=== PATIENT | female | born 1975 | race Caucasian/White ===

== ENCOUNTER 2016-08-26 08:54 | Day surgery (SDC) | payer OTHER ==
[2016-08-20 09:38] LABS: BASOPHILS 0.1 %; BASOPHILS ABSOLUTE 0.01 10/3/uL (0.0-0.16); EOSINOPHILS 0.6 %; EOSINOPHILS ABSOLUTE 0.06 10/3/uL (0.0-0.53); HEMATOCRIT 39.1 % (36.0-48.0); HEMOGLOBIN 13.2 g/dL (12.0-16.0); IMMATURE GRANULOCYTES 0.2 %; IMMATURE GRANULOCYTES ABSOLUTE 0.02 10/3/uL (0.0-0.11); LYMPHOCYTES 33.1 %; MEAN CORPUS HGB CONC 33.8 g/dL (32.0-36.0); MEAN CORPUSCULAR HEMOGLOB 30.3 pg (26.0-34.0); MEAN CORPUSCULAR VOLUME 89.7 fL (80-100); MEAN PLATELET VOLUME 9.9 fL (9.2-13.0); MONOCYTES 4.4 %; MONOCYTES ABSOLUTE 0.41 10/3/uL (0.21-1.20); NEUTROPHILS 61.6 %; NEUTROPHILS ABSOLUTE 5.77 10/3/uL (2.02-8.40); PLATELET COUNT 313 10/3/uL (150-400); RBC DISTRIBUTION WIDTH 12.9 % (12.0-16.0); RED CELL COUNT 4.36 10/6/uL (4.0-5.6); WHITE BLOOD CELLS 9.4 10/3/uL (4.5-10.5)
[2016-08-20 09:41] LABS: MANUAL DIFF NO %
[2016-08-20 10:03] LABS: CHLORIDE, SERUM 108 MMOL/L (96-112); CO2 (CARBON DIOXIDE) 24 MMOL/L (24-34); CREATININE 0.86 MG/DL (0.55-1.02); GFR AFRICAN AMERICAN 99 ML/MIN (>=60); GFR NON AFRICAN AMERICAN 85 ML/MIN (>=60); GLUCOSE, SERUM 86 MG/DL (60-99); POTASSIUM, SERUM 4.2 MMOL/L (3.5-5.3); SODIUM, SERUM 142 MMOL/L (135-148)
[2016-08-20 10:04] LABS: BUN (BLOOD UREA NITROGEN) 22 MG/DL (6-23)
--- NOTE | ~2016-08-26 | OP ---
Record Of Operation [facility] [address] [place]. [address] NAME: ALBER SYED : 79 STATUS : [facility]#: [id number] AGE: 41 ADM/REG DATE : 08/26/16 MR#: [id number] REPORT SERV DATE: 08/26/16 DICTATED BY: KARLIE YOO DATE: 08/26/16 REPORT STATUS : Draft TRANSCRIBED BY: MODMonica DATE: 08/26/16 DATE OF PROCEDURE: 08/26/2016 SERVICE: Otolaryngology. PREOPERATIVE DIAGNOSES: 1. Chronic sinusitis of the bilateral frontal sinuses. 2. Chronic nasal airway obstruction due to internal nasal valve insufficiency. POSTOPERATIVE DIAGNOSES: 1. Chronic sinusitis of the bilateral frontal sinuses. 2. Chronic nasal airway obstruction due to internal nasal valve insufficiency. PROCEDURES: 1. Bilateral endoscopic frontal sinusotomy. 2. Repair of nasal vestibular stenosis. 3. [place] of septal cartilage for use as a graft in the nose. SURGEON: Karlie Yoo MD ANESTHESIA: General endotracheal anesthesia. COMPLICATIONS: None. SPECIMENS: None. FINDINGS: I was able to clearly open the nasal frontal outflow tracts and verified their opening with the 45-degree scope. I repaired the internal nasal valve insufficiency with hair preparer grafts I created from harvested quadrangular cartilage. STATEMENT OF MEDICAL NECESSITY: This is a 41-year-old female who had undergone previous septoplasty and maxillary sinusotomies years ago from another ENT who came to me with persistent central facial headaches and chronic nasal airway obstruction. CT scan demonstrated inflammation of the outflow tracts and also physical exam demonstrated internal valve nasal insufficiency. For these, I recommended the above-indicated procedures. STATEMENT OF OPERATION: The patient was brought to the operating room in supine position and transferred over to the operating room table. After all pressure points were padded and general endotracheal anesthesia was established, the patient was draped for the sinus portion of the case. A 4% cocaine pledgets were placed in both sides of the nose and allowed to sit, they were removed. Starting on the patient's right-hand side, using a 45- degree scope, and an Acclarent Relieva balloon-type system, the lighted wire was passed easily into the frontal sinus. Pinpoint translucent was present. I inflated three times at the balloon to 12 atmospheres for 3 seconds each time, removed it and then visualized a wide open frontal sinus outflow tract via the 45-degree scope. This process repeated for the left hand side. I did have a somewhat more difficulty cannulating the left frontal outflow Record Of Operation [facility] [id number] [place]. [address] NAME: ALBER SYED : 79 STATUS : [facility] PAT#: [id number] AGE: 41 ADM/REG DATE : 08/26/16 MR#: [id number] REPORT SERV DATE: 08/26/16 DICTATED BY: KARLIE YOO DATE: 08/26/16 REPORT STATUS : Draft TRANSCRIBED BY: ROLANDO DATE: 08/26/16 tract, but I was able to get confirm with pinpoint translucent. I also inflated this three times to 12 atmospheres. I was also able to confirm a wide open frontal sinus outflow tract using the 45-degree scope. Next, we prepared for the nasal portion of the surgery. The patient was prepped and draped in the usual fashion. An inverted V transcolumellar incision was marked with a surgical marking pen. The nasal soft tissue envelope was injected with 1% lidocaine with epinephrine. Marginal incisions were made bilaterally and a transcolumellar incision was also made with an 11 blade. The transcolumellar flap was elevated in the submuscular plane and connected to the marginal incisions. The skin and soft tissue envelope of the nose was elevated to completely expose the upper and lower lateral cartilages. The anterior septal angle was then developed with a 15 blade. Bilateral perichondrial flaps were elevated. The patient had intact quadrangular cartilage. I the upper lateral cartilages from the dorsal septal cartilage with a 15 blade. I then harvested a small piece of quadrangular cartilage, leaving 1.5 dorsal and caudal strut. This was taken to the back table. Two hair preparer grafts were carved with a 15 blade. They were placed between the upper lateral cartilage and the dorsal septal cartilage and secured with 5-0 PDS sutures. The skin and soft tissue envelope was then redraped and checked for symmetry, which was present. The transcolumellar incision was closed with interrupted 6-0 fast absorbing gut sutures followed by the marginal incision, which was closed with interrupted 4-0 chromic sutures. Morgan splints that were coated with bacitracin were inserted into both sides of the nose and secured to the anterior septum with a 3-0 nylon suture. The skin of the face and nose were then cleansed with warm saline and dried. Mastisol solution was applied to the dorsum of the nose followed by modified Steri-Strips and an Aquaplast splint. This concluded the case. The patient was turned back over to Anesthesia, where she awoke, was extubated, and transferred to the PACU in stable condition. ARLIN/ROLANDO Karlie Yoo MD / [id number] CC: Karlie Yoo MD
[~2016-08-26 08:54] MED LIST: FISH-EPA1000 MG PO; FLONASE NAS; IBU-200200 MG PO; SINGULAIR1 PO; YASMIN 281 TAB PO; ZYRTEC ALLGY10 MG PO
== END 2016-08-26 16:38 | disposition home or self-care (01) ==
LOC: SDC 08:54
PROVIDERS: Otolaryngology
PROC: 02N Heart and Great Vessels, Release (ICD-10-PCS; 2016-08-26)
PROC: 0HR1X73 Replacement of Face Skin with Autologous Tissue Substitute, Full Thickness, External Approach (ICD-10-PCS; 2016-08-26)
PROC: 09QT4ZZ Repair Left Frontal Sinus, Percutaneous Endoscopic Approach (ICD-10-PCS; principal; 2016-08-26 09:45)
PROC: 09QS4ZZ Repair Right Frontal Sinus, Percutaneous Endoscopic Approach (ICD-10-PCS; 2016-08-26 09:45)
DX: J32.1 Chronic frontal sinusitis (principal); K21.9 Gastro-esophageal reflux disease without esophagitis; J44.9 Chronic obstructive pulmonary disease, unspecified; I07.1 Rheumatic tricuspid insufficiency; Z98.890 Other specified postprocedural states
CPT/HCPCS: 80048; 84703; 85025; 93005; A9270-GY; C1725; C1726; J0690; J2250; J2270; J2370; J2405; J2710; J3010